=== PATIENT | male | born 1995 | race Caucasian/White ===

== ENCOUNTER 2016-04-23 21:48 | Emergency (ER) | payer OTHER ==
[~2016-04-23] VITALS: Ht 172.7 cm; Wt 56.7 kg
[2016-04-23 22:00] VITALS: Ht 172.7 cm; Wt 56.7 kg
[2016-04-23] MEDS ORDERED: ASPIRIN 325 MG TAB PO STA (23:36)
[2016-04-23] MEDS ORDERED: KETOROLAC 30 MG INJ IV STA (23:36)
[2016-04-23 23:56] LABS: ADD SCAN DIFF NO
[2016-04-23 23:59] LABS: BASOPHILS % 0.3 % (0.0-2.0); EOSINOPHILS # 0.2 10^3/ul (0.0-0.5); HEMATOCRIT 49.8 % (42.0-52.0); HEMOGLOBIN 16.4 g/dl (14.0-18.0); MEAN CORPUSCULAR HEMOGLOBIN 29.6 pg (29.0-33.0); MEAN CORPUSCULAR HGB CONC 32.9 g/dl (32.0-37.0); MEAN CORPUSCULAR VOLUME 89.9 fl (72.0-104.0); MONOCYTE # 0.7 10^3/ul (0.3-0.9); NEUTROPHIL # 3.5 10^3/ul (1.6-7.5); NEUTROPHILS % 47.6 % (30.0-74.0); PLATELET COUNT 206 10^3/UL (140-415); RED BLOOD COUNT 5.54 10^6/ul (4.70-6.10); RED CELL DISTRIBUTION WIDTH 12.9 % (11.5-14.5); WHITE BLOOD COUNT 7.3 10^3/ul (4.8-10.8)
[2016-04-24 00:10] LABS: POTASSIUM 4.2 mmol/L (3.5-5.1)
[2016-04-24 00:12] LABS: CREATININE 0.79 mg/dl (0.61-1.24)
[2016-04-24 00:13] LABS: CALCIUM 9.3 mg/dl (8.4-10.2)
[2016-04-24 00:14] LABS: INR 0.94; PROTIME 12.6 Sec (12.2-14.2)
[2016-04-24 00:35] LABS: TROPONIN-I 0.014 ng/ml (0.00-0.12)
--- NOTE | 2016-04-24 00:38 | RADRPT ---
PROCEDURE: XR Chest. CLINICAL INDICATION: Chest pain. TECHNIQUE: Portable AP view of the chest was obtained. COMPARISON: None. FINDINGS: The cardiomediastinal silhouette is within normal limits. The lungs are clear. There is no evidenc e for pleural effusion, pneumothorax or pulmonary vascular congestion. The osseous structures are i ntact with no evidence for acute abnormality. RPTAT:HJJR IMPRESSION: No evidence for acute intrathoracic pathology. Physician Nelli Date Time Electronically viewed and signed by Ramone Maynard Physician on 04/24/2016 00:38 JR/
[2016-04-24] MEDS ORDERED: NAPR-688 PO (02:04)
--- NOTE | 2016-04-24 02:14 | ERD ---
ER Documentation Chief Complaint Date/Time DATE: 04/24/16 TIME: 02:06 Chief Complaint chest pain since 4 pm today HPI This 20-year-old male presents with chest pain around 4 AM today. As well as a right-sided the left side of his chest. He has not found anything that makes it better or worse. States that he did have some shortness of breath earlier but does not any more. His never had any heart problems and is otherwise healthy. No fever chills or cough. ROS All systems reviewed and are negative except as per history of present illness. Medications Home Meds Active Scripts Naproxen* (Naproxen*) 500 Mg Tablet, 500 MG PO BID, #28 TAB Prov:ZAID ANNE DO 04/24/16 Allergies Allergies: Coded Allergies: No Known Allergy (Unverified , 02/18/13) PMhx/Soc History of Surgery: Yes (endoscopy) Anesthesia Reaction: No Hx Neurological Disorder: No Hx Respiratory Disorders: No Hx Cardiac Disorders: No Hx Psychiatric Problems: No Hx Miscellaneous Medical Probl: Yes (gastritis) Hx Alcohol Use: No Hx Substance Use: No Hx Tobacco Use: No Smoking Status: Never smoker Physical Exam Vitals Vital Signs Date Time Temp Pulse Resp B/P Pulse Ox O2 Delivery O2 Flow Rate FiO2 04/23/16 23:50 97.7 65 18 114/75 100 Room Air 04/23/16 22:00 98.2 66 20 116/56 100 Physical Exam Const: [] No distress Head: Atraumatic Eyes: Normal Conjunctiva ENT: Normal External Ears, Nose and Mouth. Neck: Full range of motion..~ No meningismus. Resp: Clear to auscultation bilaterally Cardio: Regular rate and rhythm, no murmurs Abd: Soft, non tender, non distended. Normal bowel sounds Skin: No petechiae or rashes Ext: No cyanosis, or edema Neur: Awake and alert and oriented 3, no focal deficits Psych: Normal Mood and Affect Result Diagram: 04/23/16234604/23/167 Results 24 hrs Laboratory Tests Test 04/23/16 23:47 Activated Partial Thromboplast Time 31.0Sec Anion Gap 18 Basophils # 0.010^3/ul Basophils % 0.3% Blood Urea Nitrogen 14mg/dl Calcium Level 9.3mg/dl Carbon Dioxide Level 31mmol/L Chloride Level 98mmol/L Creatinine 0.79mg/dl Eosinophils # 0.210^3/ul Eosinophils % 2.0% Glucose Level 92mg/dl Hematocrit 49.8% Hemoglobin 16.4g/dl INR International Normalized Ratio 0.94 Lymphocytes # 3.010^3/ul Lymphocytes % 41.0% Mean Corpuscular Hemoglobin 29.6pg Mean Corpuscular Hemoglobin Concent 32.9g/dl Mean Corpuscular Volume 89.9fl Mean Platelet Volume 10.0fl Monocytes # 0.710^3/ul Monocytes % 9.0% Neutrophils # 3.510^3/ul Neutrophils % 47.6% Nucleated Red Blood Cells # 0.010^3/ul Nucleated Red Blood Cells % 0.0/100WBC Platelet Count 27061^3/UL Potassium Level 4.2mmol/L Prothrombin Time 12.6Sec Prothrombin Time Ratio 1.0 Red Blood Count 5.5410^6/ul Red Cell Distribution Width 12.9% Sodium Level 143mmol/L Troponin I 0.014ng/ml White Blood Count 7.310^3/ul Current Medications Medications (Trade) Dose Ordered Sig/Melyssa Route PRN Reason Start Time Stop Time Status Last Admin Dose Admin Aspirin (Aspirin) 325 mg ONCE STAT PO 04/23/16 23:36 04/23/16 23:38 DC 04/23/16 23:59 Ketorolac Tromethamine (Toradol) 30 mg ONCE STAT IV 04/23/16 23:36 04/23/16 23:38 DC 04/23/16 23:59 Procedures/MDM Chest pain in 20-year-old male. EKG somewhat suspicious for pericarditis. Limited bedside ultrasound was performed which showed no pericardial effusion. Very low suspicion for pulmonary embolism. Patient was given aspirin and Toradol IV which completely resolved his chest pain. He is complete asymptomatic after that. Going to try to calm his EKG to take his primary care doctor or have recommended a cardiology referral and follow-up. Discharging with naproxen and 14 days. Return precautions given for any concerning change. EKG interpretation: Mild sinus bradycardia rate of 58, diffuse ST elevation with J-point notching in precordial leads. Normal axis, normal intervals. No obvious [place] depression. Suspicious for, but not completely consistent with pericarditis. Incomplete right bundle-branch block Cardio monitor interpretation: Mild sinus bradycardia without arrhythmias Chest x-ray interpretation: No acute process, I see no foreign edema, I see no pneumothorax, see no pulmonary edema, no fractures Limited cardiac ultrasound note: Cardiac probe was used to obtain ultrasound of the heart through ribs 3 and 4 as the patient wasn't able to tolerate epigastric views because he was ticklish and could not help with flex his abdominal muscles. Please heart was viewed in motion and there were no pericardial effusions. Patient told the procedure well or no complications. Images saved inpatient chart. Departure Diagnosis: Primary Impression: Chest pain Additional Impression: Acute pericarditis Condition: Stable Patient Instructions: Pericarditis, Chest Pain, Uncertain Cause Referrals: MARISELA JARRETT (PCP) Additional Instructions: Llame al doctor VERENA y oli carola YASMANY PARA DENTRO DE 1-2 DAY.Dgale a la secretaria que nosotros le instruimos hacer esta yasmany. Obtain a pediatric cardiology referral. Avise o llame si collier condicin se empeora antes de la yasmany. Regresa aqui si peor o no mejor. ZAID ANNE DO Apr 24, 2016 02:14
[2016-04-24 02:18] VITALS: BP 116/75; PULSE 59; RESP 18; TEMP 98
== END 2016-04-24 02:24 | disposition home or self-care (01) ==
LOC: E/R 21:48
DX: R07.9 Chest pain, unspecified (principal); I30.9 Acute pericarditis, unspecified
CPT/HCPCS: 36415; 71010; 80048; 84484; 85025; 85610; 85730; 93005; 96374; J1885; Z7502; Z7610